=== PATIENT | female | born 1950 | race Two or more races ===

== ENCOUNTER 2016-09-30 19:42 | Emergency (ER) | payer SELFPAY ==
[~2016-09-30] VITALS: Ht 152.4 cm; Wt 55.3 kg
[2016-09-30] MEDS ORDERED: IBUPROFEN 600 MG TABLET PO ONE ×2 (22:00→22:03)
[2016-09-30] MEDS ORDERED: HYDROCODONE/APAP 5/325MG 1 EACH TABLET ONE (22:24)
[2016-09-30] MEDS ORDERED: HYDROCODONE/APAP 5/325MG 1 EACH TABLET PO ONE (22:30)
[2016-09-30 22:52] VITALS: BP 136/84
== END 2016-09-30 22:53 | disposition home or self-care (01) ==
LOC: ER 19:44
DX: S09.8XXA Other specified injuries of head, initial encounter (principal); V43.62XA Car passenger injured in collision with other type car in traffic accident, initial encounter; Y93.89 Activity, other specified; Y92.413 State road as the place of occurrence of the external cause; Y99.8 Other external cause status
CPT/HCPCS: 99283; A4606; Z7610